=== PATIENT | female | born 1935 | race Caucasian/White ===

== ENCOUNTER 2016-07-22 16:00 | Inpatient (IN) | payer MEDICARE, OTHER ==
--- NOTE | ~2016-07-22 | XA198 ---
[facility] A Service [facility] RADIOLOGY TEXT RESULTS PATIENT: ALLY NARVAEZ LOCATION: [facility] 328- : 33 UNIT #: [id number] AGE: [address]: Adam Dodson MD SEX: F ORDER DR: [id number] [address] [place], [place] [address] [id number] I MR#: [id number] Acc #: [id number] NAME: ALLY NARVAEZ. : 1935 SEX: F STUDY DATE/TIME: 07/23/2016 9:32 [facility] ROOM: [facility] STUDY DESCRIPTION: XA Spinal Puncture Attending Physician: Adam Dodson M.D. Ordering Physician: Herlinda Middleton M.D. Primary Care Physician: Herlinda Middleton M.D. MEDICAL IMAGING REPORT This report is preliminary unless electronic signature is present EXAM Fluoroscopically guided lumbar puncture 07/23/2016 INDICATIONS 81-year-old female with history of confusion and concern for meningitis. The fluoro time was 2.8 minutes. 3 fluoroscopic images were taken. PROCEDURE The risks, benefits and alternatives of the procedure were discussed with the patient's family customer loyalty representative and informed consent was obtained. In the procedure room a time-out was performed confirming correct patient and procedure. All elements of maximum sterile-barrier technique utilized according guidelines appropriate for the procedure. TECHNIQUE/FINDINGS Patient was placed in the prone position on the fluoroscopy table. The skin overlying the lumbar spine was prepped and draped in the usual sterile fashion. 1% lidocaine was utilized to anesthetize the skin and underlying subcutaneous tissues. Next under fluoroscopic guidance a 20-gauge needle was advanced into the subarachnoid space in the L2-L3 region and 8 mL of CSF was collected and sent to the lab. The needle was removed and a sterile dressing was applied. No immediate complications. IMPRESSION Technically successful fluoroscopically-guided lumbar puncture. Dictated by... Robert Chen M.D. [facility] A Service [facility] RADIOLOGY TEXT RESULTS PATIENT: ALLY NARVAEZ LOCATION: [facility] 328-01 : 33 UNIT #: [id number] AGE: [address]: Adam Dodson MD SEX: F ORDER DR: THIS IS AN ELECTRONICALLY VERIFIED REPORT Robert Chen M.D. at 07/24/2016 8:08 AM Linda TD: 07/23/2016 18:09 JOB #: [id number] MEDICAL IMAGING REPORT COPY
--- NOTE | ~2016-07-22 | CT71 ---
[facility] A Service of [facility] RADIOLOGY TEXT RESULTS PATIENT: ALLY NARVAEZ LOCATION: [facility] [id number] : 33 UNIT #: [id number] AGE: [address]: Kandi Steele MD SEX: F ORDER DR: [id number] [facility] [address] [place], [place] [address] [id number] I MR#: [id number] Acc #: [id number] NAME: ALLY NARVAEZ. : 1935 SEX: F STUDY DATE/TIME: 07/22/2016 19:16 UNIT: [facility] ROOM: 54424 STUDY DESCRIPTION: CT Head Wo Contrast Attending Physician: Kandi Steele M.D. Ordering Physician: Chantal Azul M.D. Primary Care Physician: Herlinda Middleton M.D. MEDICAL IMAGING REPORT This report is preliminary unless electronic signature is present EXAM Head CT without HISTORY Lethargy, confusion for 7 days, history of dementia, hypertension. No cancer history. Patient is unresponsive. No trauma history is indicated. COMMENT This CT exam was performed with one or more of the following radiation dose reduction techniques: Automatic exposure control, adjustment of mA and/or kV according to patient size, and iterative reconstruction. Routine noncontrast head CT is reviewed. There is a comparison study from 02/06/2015. There is no displaced calvarial fracture. Small amount of fluid or inflammatory change in the right side mastoid air cells with small air-fluid levels. The patient is edentulous. The paranasal sinuses are essentially clear. There are severe atherosclerotic vascular calcifications at the base of the brain. Changes in the right side mastoid air cells are chronic. There is disproportionate enlargement of the ventricles when compared to the sulci. This is again identified and has not appreciably changed from the prior study. This can be a manifestation of disproportionate central volume loss but an alternate consideration in a patient with dementia is normal pressure hydrocephalus. Please correlate further clinically. There is also extensive low attenuation in the deep periventricular and subcortical white matter probably due to small vessel disease with probably some chronic lacunes in the basal ganglia. None of this is appreciably changed and there is probably some subtle involvement in the brainstem also. There is no evidence for acute intracranial hemorrhage or extraaxial fluid collection. The basilar cisterns are patent. The [facility] A Service of [facility] RADIOLOGY TEXT RESULTS PATIENT: ALLY NARVAEZ LOCATION: [facility] [id number] : 33 UNIT #: [id number] AGE: [address]: Kandi Steele MD SEX: F ORDER DR: patient has had bilateral cataract surgery. There is no intracranial mass effect. No acute cortical infarct is appreciated but if this is the clinical concern, follow up imaging is recommended preferably with an MRI. IMPRESSION 1. Essentially stable appearance to the brain. Redemonstrated is disproportionate enlargement of the ventricles when compared to sulci, which could be a manifestation of disproportionate central volume loss or, alternatively, normal pressure hydrocephalus. Appearance is similar to the study of 2015. There is also, again, likely fairly extensive small vessel disease. There is no acute intracranial hemorrhage or extraaxial fluid collection. No CT evidence for acute cortical infarct but if this is the clinical concern and more information is needed, patient is best further assessed with MRI if she is a candidate. 2. Atherosclerotic vascular calcifications. 3. Small air-fluid levels in the right mastoid air cells are also chronic. Dictated by... Anu Ojeda M.D. THIS IS AN ELECTRONICALLY VERIFIED REPORT Anu Ojeda M.D. at 07/22/2016 11:47 PM SOHAN/eunice TD: 07/22/2016 23:29 JOB #: [id number] MEDICAL IMAGING REPORT COPY
--- NOTE | ~2016-07-22 | CO ---
Unit #: [id number] #: [id number] Patient: ALLY NARVAEZ [id number] [address] [address] [id number] I MR#: [id number] NAME: ALLY NARVAEZ ROOM: 328 Age: 81 Sex: F Admission Date: 07/22/2016 : 1935 Attending Physician: Adam Dodson M.D. Primary Care Physician: Herlinda Middleton M.D. Requesting Physician: Adam Dodosn M.D. Consultation Date: 07/23/2016 CONSULTATION REPORT REASON FOR CONSULTATION Possible meningitis. HISTORY OF PRESENT ILLNESS This is an 81-year-old white female, with history of dementia, coronary artery disease, hypertension, from a residential, who was admitted with fever and mental status changes. She apparently was on some oral antibiotics, Bactrim, for possible urinary tract infection. She became more lethargic and nonverbal and had no oral intake. She had a fever of 102.9 in the ER, but there was no hypotension. There was no evidence of stiff neck, rash or sepsis. LP was performed later on, which showed CSF pleocytosis with mostly lymphocytes, normal sugar and elevated protein. Gram stain was negative. She was started on meropenem, vancomycin and acyclovir, and ID was consulted for further evaluation. The patient is currently stable. She was seen in the ER. She is obtunded, minimally responsive but does not look septic or toxic at this time. There were no family members at this time, although it was noted that they have been present in the ER all day long. PAST MEDICAL HISTORY 1. Recent urinary tract infection. 2. Recent pneumonia. 3. History of meningitis in 2013. 4. Atrial fibrillation. 5. Coronary artery disease. 6. Hypertension. 7. History of pancreatitis. 8. Dementia. 9. Depression. 10. GERD. 11. DJD. 12. Obstructive sleep apnea. 13. Cholecystectomy. 14. Hysterectomy. 15. Right knee surgery. 16. Appendectomy. 17. Cataract extraction. 18. Open reduction and internal fixation of left hip fracture. 19. Back surgery. ALLERGIES Lyrica, morphine and rice. MEDICATIONS Unit #: [id number] #: [id number] Patient: ALLY NARVAEZ In the residential she is on multivitamin, Cymbalta, Norvasc, Ativan, Neurontin, Toprol, Anusol, Tylenol, Milk of Magnesia, Percocet, Bactrim, Florastor. In the hospital she is on acyclovir, meropenem and vancomycin. FAMILY HISTORY Family history is positive for coronary artery disease. SOCIAL HISTORY She lives in a residential. She is a lifelong nonsmoker. No history of alcohol, drug or tobacco abuse. SYSTEMIC REVIEW Unable to obtain from the patient who is obtunded, nonverbal and does not follow any commands. PHYSICAL EXAMINATION GENERAL: Physical examination reveals an elderly white female. Her eyes are open, but she does not follow any commands. She does not look septic or toxic. She has some edema. VITAL SIGNS: Temperature earlier on was 102.9; currently it is 98.5. Heart rate is in the 90s, respirations 20, blood pressure 150/60. No hypertension was reported. NECK: Neck is absolutely supple. There is no rash. LUNGS: Lungs are clear to percussion and auscultation. CARDIOVASCULAR: Heart sounds are normal. There are no murmurs. ABDOMEN: Abdomen is soft and nontender. There is no rebound or guarding. Bowel sounds are normal. NEUROLOGIC: She is obtunded. Does not follow commands, but she is able to move all 4 extremities on painful stimuli. DIAGNOSTIC STUDIES LABORATORY DIAGNOSTIC STUDIES: PT is 1.1. Strep screen is negative. influenza screen is negative. Sodium 153, potassium 4.9, chloride 118, CO2 21, BUN 66, creatinine 2.2, AST 235, ALT 187, alkaline phosphatase 126, bilirubin 1.2, lactase 2.3. Urinalysis is negative for UTI. White count is 15.4, hemoglobin 19.3, platelets 118. Group A strep screen was negative. CSF - Glucose 99, protein 122. White cells in the CSF were 66, 99% lymphocytes, 1% monocytes. Gram stain is negative. Blood cultures are negative so far. CSF Gram stain is negative. IMAGING: Head CT shows stable appearance of the brain. Disproportionate enlargement of the ventricles when compared to sulci. No significant change in the last 1 year. Extensive small vessel disease. No acute intracranial hemorrhage. There are also some small air-fluid levels in the right mastoid air cells. Chest x-ray - Borderline cardiac size with low lung volume. Probable atelectasis. No pneumothorax. CT of the chest shows no acute disease. No pneumonia. IMPRESSION Clinical presentation is very typical of aseptic meningitis and/or encephalitis. (1) bacterial meningitis is a possibility, although seems unlikely. Bactrim can also cause aseptic meningitis, and this certainly is a possibility to be entertained in differential diagnosis. Unit #: [id number] #: [id number] Patient: ALLY NARVAEZ RECOMMENDATIONS I agree with vancomycin and meropenem, as well as acyclovir. Will send CSF for HSV PCR. I will adjust the dosage given the degree of renal insufficiency. Supportive care should be continued. Further recommendations will follow. I tried to contact family members in the ER. None of them were available at the time of my examination. Dictated by... Lory Cardenas TD: 07/25/2016 07:45 JOB #: [id number] CONSULTATION REPORT X Kevon Galindo MD X CONSULTATION REPORT
--- NOTE | ~2016-07-22 | CO ---
Unit #: [id number] #: [id number] Patient: ALLY BERNSTEIN [id number] [address] [place], [place] [address] [id number] I MR#: [id number] NAME: ALLY BERNSTEIN ROOM: [facility] Age: 81 Sex: F Admission Date: 07/22/2016 : 1935 Attending Physician: Adam Dodson M.D. Primary Care Physician: Herlinda Middleton M.D. Consultation Date: 07/25/2016 CONSULTATION REPORT REASON FOR CONSULTATION Acute kidney injury and hypernatremia. HISTORY OF PRESENT ILLNESS Ms. Bernstein is an 81-year-old female, sent in from the longterm due to fever and mental status changes. However, she also is noted to have a history of dementia. She had apparently been on some Bactrim for a possible urinary tract infection before coming in. She did have decreased p.o. intake at the longterm, but I do not see any mention of vomiting or diarrhea. The patient has remained poorly responsive and she is not talking to me today. The patient is being worked up and treated for meningitis and Infectious Diseases is seeing the patient. She is noted to be a DNR. There is no obvious pain or distress this morning. No hematuria. Acute kidney injury seems to be improving off Bactrim and with IV fluids. Her hypernatremia seems to be improving after switching her from saline based IV fluids to D5W. PAST MEDICAL HISTORY Significant for previous ESBL UTI, history of pneumonia, history of chronic meningitis, atrial fibrillation, coronary artery disease with previous stenting, hypertension, history of pancreatitis, requiring ERCP and removal of stones, dementia, depression, GERD, degenerative joint disease, obstructive sleep apnea. PAST SURGICAL HISTORY Cholecystectomy, hysterectomy, knee surgery, appendectomy, cataract surgery, left hip surgery, and back surgery. CURRENT MEDICATIONS As follows; D5W at 75 mL an hour, metoprolol 2.5 mg IV q.6, vancomycin per pharmacy, meropenem 1 g IV q.8, acyclovir 600 mg IV q.12 and p.r.n. Tylenol. ALLERGIES She has a coded allergy to morphine and pregabalin. FAMILY HISTORY Significant for coronary disease, no mention of any kidney problems. SOCIAL HISTORY The patient is a longterm resident. Has never smoked according to the records. No alcohol or drug abuse. REVIEW OF SYSTEMS Unit #: [id number] #: [id number] Patient: ALLY BERNSTEIN A complete 12-point review of systems was attempted, but unable to be obtained secondary to the patient being nonresponsive. Again, she does not appear to be in any pain or distress, fevers are down. No hematuria, no rashes reported. No nausea, vomiting or diarrhea reported. Unless otherwise indicated, the review of systems was not able to be obtained. PHYSICAL EXAMINATION VITAL SIGNS: The patient is afebrile. Pulse 84, respiratory rate 17, blood pressure 145/78. I's and O's are positive by 2.4 L. Urine output was 825 mL. GENERAL: This is an elderly 81-year-old female with eyes open. Poorly responsive. Not talking, but in no acute distress. HEENT: Head is atraumatic and normocephalic. Eyes show pink conjunctivae with no scleral icterus. No nasal drainage or nosebleed. Oropharynx is dry. NECK: Shows no JVD. HEART: Regular rate and rhythm with no significant murmurs or rubs appreciated. LUNGS: Clear with no wheezing. Breathing is nonlabored. ABDOMEN: Soft and nontender. Bowel sounds are present without masses. EXTREMITIES: No lower extremity cyanosis or pitting edema. SKIN: Dry without rashes. GENITOURINARY: Gifford catheter is in place with nonbloody urine. MUSCULOSKELETAL: No joint effusions noted. NEUROLOGICAL: The patient would appear to have generalized weakness. LYMPHATIC: There is no neck or cervical lymphadenopathy. PSYCHIATRIC: Unable to be assessed. DIAGNOSTIC STUDIES LABORATORY RESULTS: Chemistry this morning noteworthy for a sodium of 156, potassium 3.5, chloride 126, bicarb 22, glucose 168, BUN 28, creatinine 0.8. Vanc level 10.6. CSF culture negative thus far. CBC was unremarkable. Yesterday, sodium level last night was 159. Urinalysis on the was remarkable only for a few red blood cells and some hyaline casts. Overall, sodium level is trending down, again from 159 yesterday down to 156 this morning. It was high on admission at 153. Creatinine on admission was 2.2, down to 0.8. ASSESSMENT AND PLAN 1. Acute kidney injury. This looks to have all been prerenal and she was also getting some Bactrim at the longterm, which has been stopped. We will continue IV fluids. 2. Hypernatremia. This looks to be due to a free water deficit from poor p.o. intake. She does not have any excessive urine output to suggest diabetes insipidus or meningitis. Fluids have been changed from saline based to D5W and her trend is towards improvement; so, we will continue those fluids. 3. Hypertension. The patient's blood pressure is reasonable on IV metoprolol. 4. Dementia. 5. Meningitis with fever with Infectious Diseases seeing and on antibiotics. 6. The patient is noted to be DNR. I would like to thank Dr. Gao for this consult and the opportunity to participate in evaluation and care of Ms. Bernstein. Dictated by... Unit #: [id number] #: [id number] Patient: ALLY BERNSTEIN Vargas Sorto Jr. MVerónica ABURTO/moisés TD: 07/25/2016 23:39 JOB #: [id number] CONSULTATION REPORT X Vargas Sorto MD X CONSULTATION REPORT
--- NOTE | ~2016-07-22 | HP ---
Unit #: [id number] #: [id number] Patient: ALLY NARVAEZ [id number] [address] [place], [place] [address] [id number] MR#: [id number] NAME: ALLY NARVAEZ ROOM: Age: 81 Sex: F Admission Date: 07/22/2016 : 1935 Attending Physician: Chantal Azul M.D. Primary Care Physician: Herlinda Middleton M.D. HISTORY AND PHYSICAL CHIEF COMPLAINT Fever and altered mental status HISTORY This 81-year-old female with dementia, CAD, hypertension, is admitted for altered mental status and fever. Family states that about a week ago the patient began to run a fever at [facility] with decreasing p.o. She was placed on an antibiotic, which I believe was Bactrim DS, for a possible urinary tract infection. However, she has become more lethargic, now is nonverbal, not taking p.o. She presented to this emergency department tonight where she is febrile, and poorly responsive although she does squeeze my hands upon command. Temperature was as high as 102.9. The patient does have a stiff neck but she is generally stiff throughout. Chest x-ray shows some atelectasis. Urinalysis does not show significant pyuria. The patient however does have a history of chronic meningitis requiring a prolonged course of vancomycin, Rocephin and acyclovir in 2013. An LP was attempted in this ER but was unsuccessful. In the ER patient was bolused with normal saline, given Tylenol, 2 g of Rocephin, vancomycin and ampicillin. In reviewing her labs, she is noted to have acute kidney injury with hypernatremia, and also LFTS are noted to be elevated. She has a benign abdomen, and is status post cholecystectomy. PAST MEDICAL HISTORY 1. ESBL UTI 07/2014. 2. Hospitalization 09/2014 for a right-sided pneumonia with respiratory failure. 3. History of chronic meningitis, admitted 09/2013, treated with a prolonged course of vancomycin, Rocephin and acyclovir. Patient was culture negative. 4. Paroxysmal atrial fibrillation. 5. CAD, status post stent to the RCA with normal LV function. 6. Hypertension. 7. History of pancreatitis with ERCP required to remove stones. 8. Dementia. 9. Depression. 10. GERD. 11. DJD. 12. Prior history of obstructive sleep apnea. 13. Cholecystectomy. 14. Hysterectomy. 15. Right knee surgery. Unit #: [id number] #: [id number] Patient: ALLY NARVAEZ 16. Appendectomy. 17. Cataract extraction. 18. ORIF left hip fracture. 19. Back surgery. ALLERGIES Possibly to Lyrica, morphine and rice. DETENTION MEDICATIONS 1. Multivitamin daily. 2. Cymbalta 60 mg daily. 3. Norvasc 2.5 mg daily. 4. Ativan 0.5 mg b.i.d. 5. Neurontin 300 mg b.i.d. 6. Metoprolol 50 mg b.i.d. 7. Anusol HC suppositories. 8. Tylenol p.r.n. 9. Milk of magnesia p.r.n. 10. Ativan 0.5 daily p.r.n. 11. Percocet 10/325 q.4 h. p.r.n. 12. The patient was also recently started on Bactrim DS b.i.d. 13. Florastor 250 mg b.i.d. DIET For[place]ell-thickened liquids and pureed currently while ill. FAMILY HISTORY CAD. SOCIAL HISTORY The patient lives at [facility], lifelong nonsmoker, does not drink alcohol. REVIEW OF SYSTEMS Impossible to obtain as patient is confused and nonverbal. PHYSICAL EXAMINATION GENERAL: Ill-appearing 81-year-old female. VITAL SIGNS: Temperature was as high as 102.9. Pulse 126. Respirations 18. Blood pressure 142/80. O2 saturation currently is 91% on 2 L of oxygen. HEENT EXAMINATION: Eyes: PERRLAA. Pharynx: I am unable to view the oropharynx. The patient will not open her mouth. From what I can see it appears to be dry. NECK: Neck is stiff but patient is stiff throughout. CHEST: Diminished breath sounds but clear. CARDIAC: Slightly tachy S1 and S2, without murmur. ABDOMEN: Bowel sounds are present. No hepatosplenomegaly, tenderness or masses. EXTREMITIES: Without cyanosis, clubbing or edema. Pedal pulses are diminished. NEUROLOGIC EXAMINATION: Patient is nonverbal. She does respond by squeezing my hands on command bilaterally. Otherwise really is fairly obtunded. DIAGNOSTIC STUDIES LABORATORY: Admission lab: Hematocrit is 58.4, white blood count 15.4, Unit #: [id number] #: [id number] Patient: ALLY NARVAEZ platelet count is 118. SMA-12: Glucose 178, BUN 66, creatinine 2.2 up from a BUN of 16, creatinine of 0.7 last year, sodium 153, chloride 118, CO2 21, AST 235, ALT 187, alkaline phosphatase 126, lactic acid is normal of uncertain significance since the patient does appear to be quite ill. Cardiac markers are negative. Urine leukocyte esterase positive, trace protein, 5 to 10 red cells, no white cells, no bacteria. IMAGING: Head CT no acute disease. Atrophy which may be out of proportion to ventricles. Unchanged. Chest x-ray likely atelectasis. CARDIOVASCULAR: EKG sinus tachycardia rate 129. ASSESSMENT 1. Fever and altered mental status, rule out meningitis, rule out occult pneumonia. 2. History of chronic meningitis. Patient was culture negative in the past. 3. Paroxysmal atrial fibrillation, currently in normal sinus rhythm. 4. Acute kidney injury with hypernatremia and dehydration. 5. Hypertension. 6. Dementia. 7. Chronic pain. 8. Coronary artery disease, status post percutaneous coronary intervention and stent with normal left ventricular function. 9. History of extended-spectrum beta-lactamase urinary tract infection. 10. Elevated liver function tests with benign abdomen. Patient is status post cholecystectomy. PLANS 1. Vancomycin and meropenem and acyclovir. 2. Obtain LP in the morning under fluoro by IR. 3. CT scan of the chest. 4. Hypotonic IV fluids. 5. Change Lopressor to an alternate route while n.p.o. 6. Patient is DNR per her [facility] papers. I did discuss this with family, 7. SCDs for DVT prophylaxis for now. After the LP could consider low-dose Lovenox. 8. Hold sedatives. 9. Recheck all labs in the morning. 10. Prognosis at this time is very guarded. Dictated by Kadni Steele M.D. AML/cf TD: 07/22/2016 23:01 JOB #: [id number] Unit #: [id number] #: [id number] Patient: SOLANGE,ALLY A HISTORY AND PHYSICAL X Kandi Steele MD HISTORY AND PHYSICAL
--- NOTE | ~2016-07-22 | CT57 ---
[facility] A Service of [facility] RADIOLOGY TEXT RESULTS PATIENT: ALLY NARVAEZ LOCATION: [facility] : 33 UNIT #: [id number] AGE: [address]: Adam Dodson MD SEX: F ORDER DR: [id number] [facility] [address] [facility] [facility]. [place], [place] [address] [id number] I MR#: [id number] Acc #: [id number] NAME: ALLY NARVAEZ : 1935 SEX: F STUDY DATE/TIME: 07/23/2016 7:54 UNIT: [facility] ROOM: [facility] STUDY DESCRIPTION: CT Chest Wo Cont Attending Physician: Adam Dodson M.D. Ordering Physician: Kandi Steele M.D. Primary Care Physician: Herlinda Middleton M.D. MEDICAL IMAGING REPORT This report is preliminary unless electronic signature is present EXAM CT chest, noncontrast, 07/23/2016. HISTORY 81-year-old female with fever, altered mental status. She is been being evaluated for fever source. Considerations include occult pneumonia, meningitis, etc. TECHNIQUE CT examination of the chest without IV contrast. This CT exam was performed with one or more of the following radiation dose reduction techniques: automatic exposure control, adjustment of mA and/or kV according to patient size, and iterative reconstruction. COMPARISON CT chest, 10/16/2011. FINDINGS The lungs are expanded and clear with the exception of minimal dependent posterior lung base atelectasis. There is no pleural or pericardial effusion. No mass or adenopathy is seen within the chest. Limited images through the uppermost abdomen show cholecystectomy with pneumobilia, likely related to sphincterotomy or bile duct surgery, unchanged. IMPRESSION 1. No active disease in the chest. No evidence of occult pneumonia or other source for the patient's unexplained fever. 2. No significant change since 10/16/2011. Dictated by... [facility] A Service [facility] RADIOLOGY TEXT RESULTS PATIENT: ALLY NARVAEZ LOCATION: [facility] : 33 UNIT #: [id number] AGE: [address]: Adam Dodson MD SEX: F ORDER DR: Von Wang M.D. THIS IS AN ELECTRONICALLY VERIFIED REPORT Von Wnag M.D. at 07/23/2016 4:00 PM RGW/audi TD: 07/23/2016 11:52 JOB #: [id number] MEDICAL IMAGING REPORT COPY
--- NOTE | ~2016-07-22 | CR72 ---
[facility] A Service of [facility] RADIOLOGY TEXT RESULTS PATIENT: ALLY NARVAEZ LOCATION: [facility] : 33 UNIT #: [id number] AGE: [address]: Adam Dodson MD SEX: F ORDER DR: [id number] [place], [place] [address] [id number] MR#: [id number] Acc #: [id number] NAME: ALLY NARVAEZ. : 1935 SEX: F STUDY DATE/TIME: 07/22/2016 15:54 UNIT: [facility] ROOM: STUDY DESCRIPTION: CR Chest Single View Portable Attending Physician: Chantal Azul M.D. Ordering Physician: Chantal Azul M.D. Primary Care Physician: Herlinda Middleton M.D. MEDICAL IMAGING REPORT This report is preliminary unless electronic signature is present EXAM Frontal chest 07/22/2016 INDICATIONS Altered mental status, shortness of air, unresponsive patient, symptoms began today. TECHNIQUE Frontal chest was performed. COMPARISON STUDIES No comparisons. COMPARISON 10/23/2014. FINDINGS Cardiac silhouette within normal limits for technique. Lung volumes are low. There is bronchovascular crowding. No effusion, pneumothorax or dense consolidation. There is some atelectatic change in the lower lobe on the left and to a lesser extent on the right. IMPRESSION Borderline cardiac size with low lung volumes. Probable atelectatic changes in the lung bases. No pneumothorax. Dictated by... Xavi Smith M.D. THIS IS AN ELECTRONICALLY VERIFIED REPORT [facility] A Service of [facility] RADIOLOGY TEXT RESULTS PATIENT: ALLY NARVAEZ LOCATION: [facility] : 33 UNIT #: [id number] AGE: [address]: Adam Dodson MD SEX: F ORDER DR: Xavi Smith M.D. at 07/23/2016 8:37 AM JLY/oleksandr TD: 07/22/2016 19:49 JOB #: [id number] MEDICAL IMAGING REPORT COPY
--- NOTE | ~2016-07-22 | DS ---
Unit #: [id number] #: [id number] Patient: LALY NARVAEZ [id number] [facility]. [address] [address] [id number] I MR#: [id number] NAME: ALLY NARVAEZ. ROOM: [facility] Age: 81 Sex: F Admission Date: 07/22/2016 : 1935 Discharge Date: 07/28/2016 Attending Physician: Adam Dodson M.D. Primary Care Physician: Herlinda Middleton M.D. DISCHARGE SUMMARY DIAGNOSIS ON ADMISSION 1. Altered mental status. 2. Acute kidney injury. 3. Rule out meningitis. DIAGNOSES ON DISCHARGE 1. Probable acute aseptic meningitis. 2. Acute kidney injury, resolved. 3. Hypernatremia, improved. 4. Advanced dementia. 5. History of chronic meningitis in 2013. 6. History of acute urinary tract infection, extended spectrum beta-lactamase. 7. Paroxysmal atrial fibrillation. 8. Coronary artery disease status post stent. 9. History of pancreatitis. 10. Depression. 11. Gastroesophageal reflux disease. 12. Degenerative joint disease. 13. History of obstructive sleep apnea syndrome. CONSULTATIONS 1. Dr. Galindo in ID consultation. 2. Dr. Fuentes in renal consultation. DIAGNOSTIC STUDIES LABS: The patient's cerebrospinal fluid culture was negative. Blood culture is negative, too, so far. Throat culture was negative, too. The patient's creatinine is 1. Sodium was 148, potassium 3.2 today. WBC is 12.1, hemoglobin 14, platelet count 196. Influenza A and B screen was negative. IMAGING: CT scan of head did not reveal any acute findings. There was extensive small vessel disease present. HOSPITAL COURSE This 81-year-old female was admitted from the nursing facility with fever and altered mental status. Details are as per admission H and P. The patient was seen by infectious disease in consultation. It was thought the patient could have aseptic meningitis, either viral or from Bactrim, antibiotic she had taken recently. The patient was treated with broad-spectrum antibiotics. Her cultures are negative. I have discussed with Dr. Galindo today, who thinks that the patient can be discharged on acyclovir. The patient has remained afebrile Unit #: [id number] #: [id number] Patient: ALLY NARVAEZ Acute kidney injury. The patient was seen by Dr. Sotelo and group in consultation. The creatinine is normal. Hypernatremia. The patient had hypernatremia with a sodium of 159. It has markedly improved. Sodium is 148 today. The patient's oral intake is poor. I have discussed with the patient's daughter who stated the patient has advanced dementia, and her oral intake is poor in the rehab facility, as well. I discussed with her about goals of care, including feeding tube placement, and she stated the patient does not want a feeding tube. Therefore, kindly encourage increase oral intake of fluids. The patient's overall prognosis is poor. She is DNR. PHYSICAL EXAMINATION GENERAL: Today, the patient is comfortable and is not in any acute distress. She is awake and alert but not verbal. VITAL SIGNS: Vital signs reveal temperature of 97.3, pulse 92 per minute, respiratory rate 14 per minute, blood pressure 133/58. HEENT: Examination revealed no conjunctival congestion. Sclera is nonicteric. NECK: Neck is supple. Trachea is central. RESPIRATORY: Examination revealed decreased breath sounds bilaterally. There are no wheezes or crackles. HEART: Regular rate and rhythm. S1, S2. ABDOMEN: Abdomen is soft, nontender. Bowel sounds are present in all 4 quadrants. NEUROLOGIC: The patient has a flat affect, is not verbal, does not follow commands. SKIN: Skin is warm and dry. CONDITION Stable. ACTIVITIES As tolerated. DISCHARGE MEDICATIONS 1. Tylenol 650 mg p.o. q.6 hours. 2. Norvasc 2.5 mg p.o. daily. 3. Toprol XL 50 mg p.o. b.i.d. 4. Milk of Magnesia as needed. 5. Acyclovir 600 mg IV q.8 hours x5 days. DISPOSITION The patient will be transferred to rehab. NOTE: I called and discussed the plan with the patient's daughter, Kori, who is aware of the poor prognosis. I also called and discussed with Dr. Galindo of infectious disease. Dictated by... Lory Perkins/rocco Unit #: [id number] #: [id number] Patient: ALLY NARVAEZ TD: 07/28/2016 15:03 JOB #: [id number] DISCHARGE SUMMARY X Adam Dodson MD DISCHARGE SUMMARY
--- NOTE | ~2016-07-22 | EKG ---
PATIENT: ALLY NARVAEZ UNIT #: [id number] Ventricular Rate: 129 BPM Atrial Rate: 129 BPM P-R Interval: 160 ms QRS Duration: 84 ms Q-T Interval: 282 ms QTC Calculation(Bezet): 413 ms P [place]: 42 degrees Calculated R [place]: -8 degrees Calculated T [place]: 69 degrees Diagnosis Line: Sinus tachycardia Diagnosis Line: Otherwise normal ECG Diagnosis Line: When compared with ECG of 09-MAR-2013 13:16, Diagnosis Line: (unconfirmed) Diagnosis Line: Vent. rate has increased BY 49 BPM Diagnosis Line: Questionable change in QRS axis Diagnosis Line: Confirmed by KIANA YANG MD ([id number]) on 07/23/2016 Diagnosis Line: 6:10:10 PM INTERPRETING MD: CELIA STOUT
--- NOTE | ~2016-07-22 | XA166 ---
[facility] A Service of [facility] & [facility] RADIOLOGY TEXT RESULTS PATIENT: ALLY NARVAEZ LOCATION: [facility] 328- : 33 UNIT #: [id number] AGE: [address]: Adam Dodson MD SEX: F ORDER DR: [id number] [facility] [address] [facility]. [place], [place] [address] [id number] I MR#: [id number] Acc #: [id number] NAME: ALLY NARVAEZ. : 1935 SEX: F STUDY DATE/TIME: 07/24/2016 14:42 UNIT: [address] ROOM: [facility] STUDY DESCRIPTION: XA PICC Line Placement WO Port Attending Physician: Adam Dodson M.D. Ordering Physician: Adam Dodson M.D. Primary Care Physician: Herlinda Middleton M.D. MEDICAL IMAGING REPORT This report is preliminary unless electronic signature is present EXAM Right-sided PICC line placement. INDICATIONS Need for IV access in a patient with history of confusion and fever. She was admitted on 07/22/16. PRE-PROCEDURE The procedure was explained to the patient and/or patient off premise service representative including risks, benefits, potential complications and potential for alternative forms of treatment. Informed consent was obtained, and prior to initiating the procedure a formal timeout procedure was performed. PROCEDURE Using full standard sterile barrier technique, including caps, gowns, gloves, masks, as well as sterile skin preparation and standard sterile draping, the right arm was prepped and draped in the usual fashion, and real-time sterile ultrasound guidance was used to localize an arm vein and to confirm vessel patency. A hard copy ultrasound image was recorded. After local anesthesia with 1% Xylocaine, the vein was punctured using real-time sterile ultrasound guidance, and an 0.018 guidewire was advanced into the superior vena cava, using fluoroscopic guidance. A 5-[place] dual-lumen PICC was then measured and deployed with the tip positioned in the superior vena cava. The position of the line was documented with a radiographic image. The line was secured in place with an adhesive dressing and an antibiotic patch was applied. Total fluoro time was 0.1 minutes. AK was 1 milligray. IMPRESSION Successful placement of a 5-[place] dual-lumen Power PICC via the right arm under ultrasound and fluoroscopic guidance. The tip of the PICC is in STS. [facility] A Service of [facility] & [facility] RADIOLOGY TEXT RESULTS PATIENT: ALLY NARVAEZ LOCATION: [facility] 328-01 : 33 UNIT #: [id number] AGE: [address]: Adam Dodson MD SEX: F ORDER DR: good position in the superior vena cava. Dictated by... Catherine Beck M.D. THIS IS AN ELECTRONICALLY VERIFIED REPORT Catherine Beck M.D. at 07/25/2016 8:03 PM AFF/ea TD: 07/24/2016 21:28 JOB #: [id number] MEDICAL IMAGING REPORT COPY
[~2016-07-22 16:00] MED LIST: ACETAMINOPHEN PO; ACETAMINOPHEN PR; AMLODIPINE BESY10 MG PO; AMLODIPINE BESYL5 MG PO; ATIVAN0.5 MG PO; ATIVAN2 MG/M1 SL; BACTRIM DS TABL1 TA1 PO; BUMEX2 MG PO; CENTRUM COMPLE1 EACH PO; CENTRUM PO; CERTAGEN PO; COLACE PO; COZAAR PO; CYMBALTA PO; DURAGESIC1 EAC1 TD; DURAGESIC12 MCG EXT; DURAGESIC25 MCG EXT; DYAZIDE 37.5/251 CAP PO; FENTANYL1 EAC1 TD; FENTANYL1 EACH TD; FISH OIL 1,0001 CAP PO; HYDROCODON-ACE1 EAC9 PO; K-DUR10 MEQ PO; KCL PO; LEVAQUIN PO; LOPRESSOR PO; MELOXICAM15 MG PO; METOPROLOL PO; METOPROLOL SUCC50 MG; METOPROLOL SUCC50 MG PO; METOPROLOL TAR25 MG DOB; METOPROLOL TAR25 MG PO; MILK OF MAGNESIA PO; MINTOX MAXIMUM355 ML PO; MIRALAX17 GM; MUCOMYST4 ML 20% PO; NEURONTIN300 MG PO; NEXIUM PO; NORVASC PO; NORVASC10 MG; NORVASC10 MG PO; NORVASC2.5 MG PO; OXYCODON HCL-AP1 TA2 PO; PENNSAID150 ML TP; PERCOCET 10/3251 TAB PO; PERCOCET10 PO; POTASSIUM CHLO10 MEQ PO; REQUIP1 MG PO; REQUIP2 MG; REQUIP2 MG PO; ROBINUL1 MG PO; ROXANOL20 MG/ML SL; TOPROL XL PO; TOPROL XL50 MG PO; TYLENOL325 M1; VIBRAMYCIN100 M1 PO; ZOFRAN ODT4 MG; ZOFRAN PO; ZYLOPRIM100 MG DOB; ZYLOPRIM100 MG PO; estradiol
[2016-07-22 16:01] LABS: BASOPHIL# 0.2 X10e3 (0-0.3); EOSINOPHIL% 0.1 % (0.0-7.0); HEMATOCRIT 58.4 % (35.0-45.0); HEMOGLOBIN 19.3 gm/dL (12.0-16.0); LYMPHOCYTE# 3.7 X10e3 (1.0-3.5); LYMPHOCYTE% 24.1 % (17.0-45.0); MEAN CELL VOLUME 95.2 FL (83-96); MEAN CORPUSCULAR HEMOGLOBIN 31.4 PG (28-34); MEAN PLATELET VOLUME 9.8 FL (6.5-11.5); MONOCYTE# 2.1 X10e3 (0-1.0); MONOCYTE% 13.7 % (3.0-12.0); NEUTROPHIL# 9.4 X10e3 (1.5-7.1); NEUTROPHIL% 61.1 % (40-75); PLATELET COUNT 118 X10e3 (140-420); RED BLOOD COUNT 6.14 X10e (3.90-5.30); RED CELL DISTRIBUTION WIDTH 13.8 % (11.0-15.5); WHITE BLOOD COUNT 15.4 X10e3 (4.0-10.5)
[2016-07-22 16:02] LABS: DIFF IND YES
[2016-07-22 16:17] LABS: INR 1.1; PROTHROMBIN TIME (PATIENT) 11.2 SECONDS (9.6-11.5)
[2016-07-22 16:25] LABS: URINE SOURCE CLEAN CATCH
[2016-07-22 16:30] LABS: INFLUENZA A NEG (NEG); INFLUENZA B NEG (NEG)
[2016-07-22 16:31] LABS: ALBUMIN SERUM 3.9 g/dL (3.5-5.0); BILIRUBIN, DIRECT 0.3 mg/dL (0.0-0.2); BILIRUBIN,INDIRECT 0.9 mg/dL (0.0-0.9); BILIRUBIN,TOTAL 1.2 mg/dL (0.2-2.0); CALCIUM SERUM 9.2 mg/dL (8.4-10.2); CREATININE SERUM 2.2 mg/dL (0.6-1.4); GLOM FILT RATE Estimated 22.7 mL/min (>60); POTASSIUM 4.9 mmol/L (3.5-5.1); PROTEIN TOTAL SERUM 8.1 g/dL (6.0-8.3)
[2016-07-22 16:33] LABS: URINE APPEARANCE CLEAR; URINE BLOOD NEG (NEG); URINE COLOR DK YELLOW; URINE GLUCOSE NEG (NEG); URINE KETONE NEG (NEG); URINE LEUKOCYTE ESTERASE TRACE (NEG); URINE NITRATE NEG (NEG); URINE PH 5.5 (5-8); URINE PROTEIN TRACE (NEG); URINE SPECIFIC GRAVITY 1.024 (1.003-1.035)
[2016-07-22 16:36] LABS: URINE BACTERIA AUWI NEG (NEGATIVE); URINE SQUAMOUS EPITHELIAL CELL FEW /[HPF]; UWBCS1 AUWI 0-2 (0-5)
[2016-07-22 16:49] LABS: CULTURE INDICATED? NO; URINE BILIRUBIN NEG (NEG)
[2016-07-22 17:00] LABS: ANISOCYTOSIS SL; PLATELET ESTIMATE DECREASED (NORMAL)
[2016-07-22 17:42] LABS: POC - CKMB <1.0 ng/mL (0.0-7.9); POC - TROPONIN <0.05 ng/mL (<=0.05)
[2016-07-22] MEDS ORDERED: CENTRUM PO ×2 (22:41→22:48)
[2016-07-22] MEDS ORDERED: DULOXETINE HCL60 MG PO (22:42)
[2016-07-22] MEDS ORDERED: ATIVAN0.5 MG PO (22:43)
[2016-07-22] MEDS ORDERED: NORVASC2.5 MG PO (22:43)
[2016-07-22] MEDS ORDERED: NEURONTIN300 MG PO (22:44)
[2016-07-22] MEDS ORDERED: TOPROL XL50 MG PO (22:44)
[2016-07-22] MEDS ORDERED: ANUSOL-HC CREAM30 G1 EXT (22:45)
[2016-07-22] MEDS ORDERED: ACETAMINOPHEN PO (22:46)
[2016-07-22] MEDS ORDERED: MILK OF MAGNESIA PO (22:47)
[2016-07-22] MEDS ORDERED: PERCOCET 10/31 UDTA1 PO (22:47)
[2016-07-23 03:48] LABS: HEMATOCRIT 48.7 % (35.0-45.0); MEAN CELL VOLUME 96.3 FL (83-96); MEAN CORPUSCULAR HEMOGLOBIN 31.3 PG (28-34); MEAN CORPUSCULAR HGB CONC 32.5 g/dL (30-36); MEAN PLATELET VOLUME 9.4 FL (6.5-11.5); RED BLOOD COUNT 5.06 X10e (3.90-5.30); RED CELL DISTRIBUTION WIDTH 14.1 % (11.0-15.5); WHITE BLOOD COUNT 14.9 X10e3 (4.0-10.5)
[2016-07-23 03:49] LABS: HEMOGLOBIN 15.9 gm/dL (12.0-16.0)
[2016-07-23 04:09] LABS: BILIRUBIN,TOTAL 1.3 mg/dL (0.2-2.0); BUN/CREATININE RATIO 37.5; CALCIUM SERUM 7.6 mg/dL (8.4-10.2); CREATININE SERUM 1.6 mg/dL (0.6-1.4); GLOM FILT RATE Estimated 32.7 mL/min (>60); POTASSIUM 4.1 mmol/L (3.5-5.1); PROTEIN TOTAL SERUM 6.2 g/dL (6.0-8.3)
[2016-07-23 11:05] LABS: CSF TUBE NUMBER 1; CSF XANTHACHROMIC YES
[2016-07-23 11:06] LABS: CSF APPEARANCE CLEAR (CLEAR); CSF RBC 21 CMM (0); CSF WBC 66 CMM (0-8)
[2016-07-23 11:22] LABS: CSF APPEARANCE CLEAR (CLEAR); CSF RBC 3 CMM (0); CSF TUBE NUMBER 4; CSF WBC 43 CMM (0-8); CSF XANTHACHROMIC YES
[2016-07-23 11:58] LABS: GLUCOSE-CSF 99 mg/dL (50-80); PROTEIN-CSF 122 mg/dL (15-45)
[2016-07-23 12:21] LABS: CSF LYMPHOCYTE 99 %; CSF MONOCYTE 1 %; CSF NEUTROPHIL 0 %
[2016-07-23 12:24] LABS: CSF LYMPHOCYTE 97 %; CSF MONOCYTE 2 %; CSF NEUTROPHIL 1 %
[2016-07-23 15:08] LABS: CRYPTO AG CSF/SERUM NEG (NEG); CRYPTO AG SOURCE CSF
[2016-07-24 08:18] LABS: BASOPHIL# 0.1 X10e3 (0-0.3); BASOPHIL% 0.6 % (0-2.5); EOSINOPHIL# 0.1 X10e3 (0-0.7); HEMATOCRIT 46.4 % (35.0-45.0); HEMOGLOBIN 14.9 gm/dL (12.0-16.0); LYMPHOCYTE% 14.3 % (17.0-45.0); MEAN CELL VOLUME 96.4 FL (83-96); MEAN CORPUSCULAR HGB CONC 32.1 g/dL (30-36); MEAN PLATELET VOLUME 9.4 FL (6.5-11.5); MONOCYTE# 1.4 X10e3 (0-1.0); MONOCYTE% 10.2 % (3.0-12.0); NEUTROPHIL# 10.3 X10e3 (1.5-7.1); NEUTROPHIL% 73.9 % (40-75); PLATELET COUNT 172 X10e3 (140-420); RED BLOOD COUNT 4.82 X10e (3.90-5.30); RED CELL DISTRIBUTION WIDTH 13.9 % (11.0-15.5); WHITE BLOOD COUNT 13.9 X10e3 (4.0-10.5)
[2016-07-24 08:21] LABS: DIFF IND NO
[2016-07-24 09:03] LABS: BILIRUBIN,TOTAL 1.3 mg/dL (0.2-2.0); CALCIUM SERUM 8.3 mg/dL (8.4-10.2); GLOM FILT RATE Estimated 56.3 mL/min (>60); POTASSIUM 4.2 mmol/L (3.5-5.1); PROTEIN TOTAL SERUM 5.9 g/dL (6.0-8.3)
[2016-07-24 16:48] LABS: HSV 1 DNA Not Detected (Not Detected); HSV 2 DNA Not Detected (Not Detected)
[2016-07-24 19:50] LABS: BLOOD UREA NITROGEN 38 mg/dL (9-23); BUN/CREATININE RATIO 42.22; CALCIUM SERUM 8.4 mg/dL (8.4-10.2); CARBON DIOXIDE 19 mmol/L (22-31); CHLORIDE 130 mmol/L (100-111); CREATININE SERUM 0.9 mg/dL (0.6-1.4); GLOM FILT RATE Estimated ABOVE60 mL/min (>60); GLUCOSE FASTING 153 mg/dL (70-110); POTASSIUM 3.9 mmol/L (3.5-5.1)
[2016-07-24 19:51] LABS: SODIUM 159 mmol/L (135-145)
[2016-07-25 05:14] LABS: HEMATOCRIT 43.3 % (35.0-45.0); MEAN CELL VOLUME 95.8 FL (83-96); MEAN CORPUSCULAR HEMOGLOBIN 30.9 PG (28-34); MEAN CORPUSCULAR HGB CONC 32.3 g/dL (30-36); RED BLOOD COUNT 4.52 X10e (3.90-5.30); RED CELL DISTRIBUTION WIDTH 13.9 % (11.0-15.5); WHITE BLOOD COUNT 10.5 X10e3 (4.0-10.5)
[2016-07-25 07:13] LABS: BLOOD UREA NITROGEN 28 mg/dL (9-23); CALCIUM SERUM 8.4 mg/dL (8.4-10.2); CARBON DIOXIDE 22 mmol/L (22-31); CHLORIDE 126 mmol/L (100-111); CREATININE SERUM 0.8 mg/dL (0.6-1.4); GLOM FILT RATE Estimated ABOVE60 mL/min (>60); GLUCOSE FASTING 168 mg/dL (70-110); POTASSIUM 3.5 mmol/L (3.5-5.1); SODIUM 156 mmol/L (135-145)
[2016-07-26 09:46] LABS: HEMATOCRIT 44.4 % (35.0-45.0); HEMOGLOBIN 14.5 gm/dL (12.0-16.0); MEAN CELL VOLUME 95.3 FL (83-96); MEAN CORPUSCULAR HEMOGLOBIN 31.1 PG (28-34); MEAN CORPUSCULAR HGB CONC 32.6 g/dL (30-36); MEAN PLATELET VOLUME 9.3 FL (6.5-11.5); RED BLOOD COUNT 4.66 X10e (3.90-5.30); RED CELL DISTRIBUTION WIDTH 13.6 % (11.0-15.5); WHITE BLOOD COUNT 11.6 X10e3 (4.0-10.5)
[2016-07-26 10:30] LABS: BLOOD UREA NITROGEN 13 mg/dL (9-23); BUN/CREATININE RATIO 21.66; CARBON DIOXIDE 22 mmol/L (22-31); CHLORIDE 116 mmol/L (100-111); CREATININE SERUM 0.6 mg/dL (0.6-1.4); GLOM FILT RATE Estimated ABOVE60 mL/min (>60); GLUCOSE FASTING 155 mg/dL (70-110); SODIUM 147 mmol/L (135-145)
[2016-07-26 18:54] LABS: BLOOD UREA NITROGEN 12 mg/dL (9-23); CALCIUM SERUM 6.5 mg/dL (8.4-10.2); CARBON DIOXIDE 20 mmol/L (22-31); CHLORIDE 118 mmol/L (100-111); CREATININE SERUM 0.6 mg/dL (0.6-1.4); GLOM FILT RATE Estimated ABOVE60 mL/min (>60); GLUCOSE FASTING 199 mg/dL (70-110); SODIUM 140 mmol/L (135-145)
[2016-07-26 18:56] LABS: POTASSIUM 2.9 mmol/L (3.5-5.1)
[2016-07-26 20:42] LABS: BLOOD UREA NITROGEN 13 mg/dL (9-23); BUN/CREATININE RATIO 21.66; CALCIUM SERUM 7.4 mg/dL (8.4-10.2); CARBON DIOXIDE 22 mmol/L (22-31); CHLORIDE 117 mmol/L (100-111); CREATININE SERUM 0.6 mg/dL (0.6-1.4); GLOM FILT RATE Estimated ABOVE60 mL/min (>60); GLUCOSE FASTING 146 mg/dL (70-110); POTASSIUM 3.1 mmol/L (3.5-5.1); SODIUM 141 mmol/L (135-145)
[2016-07-27 05:56] LABS: HEMATOCRIT 42.8 % (35.0-45.0); MEAN CELL VOLUME 93.8 FL (83-96); MEAN CORPUSCULAR HEMOGLOBIN 30.6 PG (28-34); MEAN CORPUSCULAR HGB CONC 32.6 g/dL (30-36); MEAN PLATELET VOLUME 9.3 FL (6.5-11.5); RED BLOOD COUNT 4.56 X10e (3.90-5.30); RED CELL DISTRIBUTION WIDTH 13.1 % (11.0-15.5); WHITE BLOOD COUNT 12.1 X10e3 (4.0-10.5)
[2016-07-27 06:40] LABS: ALBUMIN SERUM 2.7 g/dL (3.5-5.0); ALKALINE PHOSPHATASE 105 U/L (32-92); ALT (SGPT) 51 U/L (10-40); AST (SGOT) 45 U/L (10-42); BILIRUBIN,TOTAL 1.2 mg/dL (0.2-2.0); BLOOD UREA NITROGEN 9 mg/dL (9-23); CARBON DIOXIDE 22 mmol/L (22-31); CHLORIDE 111 mmol/L (100-111); CREATININE SERUM 0.5 mg/dL (0.6-1.4); GLOM FILT RATE Estimated ABOVE60 mL/min (>60); GLUCOSE FASTING 120 mg/dL (70-110); MAGNESIUM 1.7 mg/dL (1.6-3.0); POTASSIUM 3.8 mmol/L (3.5-5.1); PROTEIN TOTAL SERUM 5.2 g/dL (6.0-8.3); SODIUM 142 mmol/L (135-145)
[2016-07-28 07:11] LABS: BLOOD UREA NITROGEN 10 mg/dL (9-23); BUN/CREATININE RATIO 14.28; CALCIUM SERUM 8.6 mg/dL (8.4-10.2); CARBON DIOXIDE 26 mmol/L (22-31); CHLORIDE 113 mmol/L (100-111); CREATININE SERUM 0.7 mg/dL (0.6-1.4); GLOM FILT RATE Estimated ABOVE60 mL/min (>60); GLUCOSE FASTING 128 mg/dL (70-110); MAGNESIUM 1.9 mg/dL (1.6-3.0); POTASSIUM 3.2 mmol/L (3.5-5.1); SODIUM 148 mmol/L (135-145)
== END 2016-07-29 07:00 | DRG 98 ==
LOC: CED 16:00 → CEDOF 22:41 → C3A PCU 07-23 16:11
PROVIDERS: Emergency Medicine; Internal Medicine; Internal Medicine Nephrology; Nurse Practitioner Family
PROC: 009U3ZX Drainage of Spinal Canal, Percutaneous Approach, Diagnostic (ICD-10-PCS; 2016-07-23)
PROC: B01BYZZ Fluoroscopy of Spinal Cord using Other Contrast (ICD-10-PCS; 2016-07-23)
PROC: 02HV33Z Insertion of Infusion Device into Superior Vena Cava, Percutaneous Approach (ICD-10-PCS; principal; 2016-07-24)
PROC: B518YZA Fluoroscopy of Superior Vena Cava using Other Contrast, Guidance (ICD-10-PCS; 2016-07-24)
PROC: B548ZZA Ultrasonography of Superior Vena Cava, Guidance (ICD-10-PCS; 2016-07-24)
DX: G03.0 Nonpyogenic meningitis (principal); N17.9 Acute kidney failure, unspecified; E87.0 Hyperosmolality and hypernatremia; I48.0 Paroxysmal atrial fibrillation; E86.0 Dehydration; F03.90 Unspecified dementia, unspecified severity, without behavioral disturbance, psychotic disturbance, mood disturbance, and anxiety; I10 Essential (primary) hypertension; F32.9 Major depressive disorder, single episode, unspecified; G47.33 Obstructive sleep apnea (adult) (pediatric); I25.10 Atherosclerotic heart disease of native coronary artery without angina pectoris; K21.9 Gastro-esophageal reflux disease without esophagitis; M19.90 Unspecified osteoarthritis, unspecified site; Z90.49 Acquired absence of other specified parts of digestive tract; Z90.710 Acquired absence of both cervix and uterus; Z98.49 Cataract extraction status, unspecified eye; G89.29 Other chronic pain; R94.5 Abnormal results of liver function studies; Z66 Do not resuscitate
CPT/HCPCS: 36415; 51702; 70450; 71010; 71250; 76937; 77001; 77003; 80048; 80053; 80076; 80202; 81003; 82553; 82945; 82947; 83605; 83735; 84157; 84484; 85025; 85027; 85610; 87040; 87070; 87102; 87116; 87205; 87206; 87529; 87651; 87804; 87880; 87899; 89051; 92526; 92610; 93005; 94760; 96360; 96365; 99285; C1751; G8996-GN; G8997-GN; G8998-GN; J0133; J0290; J0696; J2185; J3370; J3480; J3490; J7060